=== PATIENT | female | born 1955 | race Caucasian/White ===

== ENCOUNTER → 2018-04-13 | Outpatient (CLI) | payer OTHER ==
[~2018-04-13] MED LIST: ALEN70 PO; CHOL10002 PO; CYAN1000 PO; MONT10T PO; Omeprazole20 M1; VITAMIN D32000 UNI1 PO
== END | disposition home or self-care (01) ==
LOC: LAB SHORT 08:30 → LAB 08:30
DX: L30.9 Dermatitis, unspecified (principal)
CPT/HCPCS: 87798

== ENCOUNTER 2018-08-17 12:39 | Emergency (ER) | payer OTHER ==
[~2018-08-17] VITALS: Ht 157.5 cm; Wt 68.0 kg
[2018-08-17 13:07] LABS: PCO2 Arterial 42.4 mmHg (35-45); PO2 Arterial 58.1 mmHg (80-100); pH Blood Arterial 7.45 (7.35-7.45)
[2018-08-17 13:17] LABS: BASOPHILS ABSOLUTE AUTO 0.07 K/mm3 (0.00-0.23); BASOPHILS PERCENT AUTO 1 % (0-2); EOSINOPHILS ABSOLUTE AUTO 0.37 K/mm3 (0.00-0.68); EOSINOPHILS PERCENT AUTO 3 % (0-6); Hematocrit 43.3 % (33.0-51.0); Hemoglobin 14.2 g/dL (11.5-16.0); IMMATURE GRAN ABSOLUTE AUTO 0.15 K/mm3 (0.00-0.10); IMMATURE GRAN PERCENT AUTO 1 % (0-1); LYMPHOCYTES ABSOLUTE AUTO 0.99 K/mm3 (0.84-5.20); LYMPHOCYTES PERCENT AUTO 8 % (21-46); MONOCYTES ABSOLUTE AUTO 0.61 K/mm3 (0.16-1.47); MONOCYTES PERCENT AUTO 5 % (4-13); Mean Corpuscular HGB 30.1 pg (26.0-34.0); Mean Corpuscular HGB Conc 32.8 g/dL (31.5-36.5); Mean Corpuscular Volume 92 fL (80-100); Mean Platelet Volume 10.2 fL (9.1-12.4); NEUTROPHILS ABSOLUTE AUTO 10.36 K/mm3 (1.96-9.15); NEUTROPHILS PERCENT AUTO 83 % (41-73); Platelet Count 233 K/mm3 (150-400); RDW Coefficient Variation 13.3 % (11.7-14.2); RDW Standard Deviation 44.9 fL (35.1-46.3); Red Blood Cell Count 4.71 M/mm3 (3.80-5.20); White Blood Cell Count 12.55 K/mm3 (4.00-11.30)
[2018-08-17 13:31] LABS: Alanine Aminotransfer (ALT/SGP 38 U/L (12-78); Albumin, Blood 3.2 g/dL (3.4-5.0); Albumin/Globulin Ratio 0.7 (0.8-1.8); Alk Phos 101 U/L (50-136); Anion Gap 7 mmol/L (6-16); Aspartate Aminotrans (AST/SGOT 28 U/L (12-37); Bilirubin, Total 0.6 mg/dL (0.1-1.0); Blood Urea Nitrogen 12 mg/dL (8-24); Bun/Creatinine Ratio 20.2 (12.0-20.0); CO2, Blood 28 mmol/L (21-32); Chloride, Blood 106 mmol/L (98-108); Creatinine, Blood 0.59 mg/dL (0.40-1.00); Globulin, Blood 4.4 g/dL (2.2-4.0); Glomerular Filtration Rate >60 (60-); Glucose, Blood 139 mg/dL (70-99); Potassium, Blood 4.3 mmol/L (3.5-5.5); Sodium, Blood 141 mmol/L (136-145); Total Protein, Blood 7.6 g/dL (6.4-8.2)
== END 2018-08-17 15:36 | disposition home or self-care (01) ==
LOC: ER 12:39
PROVIDERS: Physician Assistant
DX: J98.2 Interstitial emphysema (principal)
CPT/HCPCS: 36415; 36600; 71046; 80053; 82803; 85025; 94660; 96374; 96375; 99285-25; J2060; J2930

== ENCOUNTER 2018-10-14 11:36 | Inpatient (IN) | payer MEDICARE, BC ==
[~2018-10-14] VITALS: Ht 167.6 cm; Wt 64.0 kg
[2018-10-14 11:51] LABS: PCO2 Arterial 54.6 mmHg (35-45); PO2 Arterial 71.9 mmHg (80-100); pH Blood Arterial 7.38 (7.35-7.45)
[2018-10-14 11:56] LABS: BASOPHILS ABSOLUTE AUTO 0.08 K/mm3 (0.00-0.23); BASOPHILS PERCENT AUTO 1 % (0-2); EOSINOPHILS ABSOLUTE AUTO 0.87 K/mm3 (0.00-0.68); EOSINOPHILS PERCENT AUTO 6 % (0-6); Hematocrit 50.3 % (33.0-51.0); Hemoglobin 15.7 g/dL (11.5-16.0); IMMATURE GRAN ABSOLUTE AUTO 0.21 K/mm3 (0.00-0.10); IMMATURE GRAN PERCENT AUTO 1 % (0-1); LYMPHOCYTES ABSOLUTE AUTO 1.41 K/mm3 (0.84-5.20); LYMPHOCYTES PERCENT AUTO 10 % (21-46); MONOCYTES ABSOLUTE AUTO 0.91 K/mm3 (0.16-1.47); MONOCYTES PERCENT AUTO 6 % (4-13); Mean Corpuscular HGB 29.2 pg (26.0-34.0); Mean Corpuscular HGB Conc 31.2 g/dL (31.5-36.5); Mean Corpuscular Volume 94 fL (80-100); NEUTROPHILS ABSOLUTE AUTO 11.35 K/mm3 (1.96-9.15); NEUTROPHILS PERCENT AUTO 77 % (41-73); Platelet Count 320 K/mm3 (150-400); RDW Coefficient Variation 15.6 % (11.7-14.2); RDW Standard Deviation 52.5 fL (35.1-46.3); Red Blood Cell Count 5.37 M/mm3 (3.80-5.20); White Blood Cell Count 14.83 K/mm3 (4.00-11.30)
[2018-10-14 12:24] LABS: Alanine Aminotransfer (ALT/SGP 59 U/L (12-78); Albumin/Globulin Ratio 0.8 (0.8-1.8); Alk Phos 121 U/L (50-136); Anion Gap 9 mmol/L (6-16); Aspartate Aminotrans (AST/SGOT 31 U/L (12-37); Bilirubin, Total 0.6 mg/dL (0.1-1.0); Blood Urea Nitrogen 16 mg/dL (8-24); Bun/Creatinine Ratio 30.5 (12.0-20.0); CO2, Blood 28 mmol/L (21-32); Calcium, Blood 8.9 mg/dL (8.5-10.1); Chloride, Blood 100 mmol/L (98-108); Creatinine, Blood 0.52 mg/dL (0.40-1.00); Globulin, Blood 3.9 g/dL (2.2-4.0); Glomerular Filtration Rate >60 (60-); Glucose, Blood 285 mg/dL (70-99); Potassium, Blood 4.3 mmol/L (3.5-5.5); Sodium, Blood 137 mmol/L (136-145); Total Protein, Blood 6.9 g/dL (6.4-8.2)
--- NOTE | 2018-10-14 19:26 | NUR ---
Initial Visit: Palliative Care Consult for Goals of Care. Pt is A&O and denies pain at this time. Sandra, brother in law Yaneth, and sister in law Shirley present during visit. Pt denies anxiety at this time but reports anxiety increases significantly when SOB is severe and with exertion. Pt currently on BIPAP. Engaged in therapeutic conversation regarding goals of care. Pt is [employer] and lives at home with her Sandra. Sandra is the Pt's primary caregiver. Shirley and Yaneth live on the same farm and Pt's adult children live in [place]. All are very supportive of Pt's care needs. Sandra reports the Pt requires assistance with transfers, ambulation, dressing, and bathing. Pt reports that she has experienced a significant decline over the last week. Sandra tearful at times during visit and this RN offered emotional support. Listened as Sandra expressed fears and concerns. Pt reports no concerns and states "I am ready to live with Carlo". Pt and Sandra report the goal is for the Pt to pass away at home. Discussed hospice and educated Pt and family on hospice philosophy. Pt and Sandra state hospice is what we want. Sandra inquires if Pt would be able to have a BIPAP or CPAP while on hospice. Instructed Sandra this RN did not know the answer and defferred question to high risk case manager when they make a visit. Instructed Sandra and Pt on medications that hospice can provide to help manage Pt's breathing. Sandra and Pt V/U. Pt declines need for a visit from Physical Education Professor. Pt and family report no other concerns at this time. Spoke with Dr Olivera prior to visit and he is agreeable to discuss hospice. Spoke with Pt's PCU nurse and she is agreeable to plan. ADLs 4/6 KPS 40% PPS 40% Pt is severly dyspneic and oxygen dependent Plan: Will place hospice referral. Plan is for Pt to go home on hospice for same day admit upon hospital discharge. Will remain available
--- NOTE | 2018-10-14 19:26 | NUR ---
SHIFT SUMMARY PT ALERT AND ORIENTED. VS STABLE. HR HAS SUSTAINED 90'S ON CARDIZEM GTT AT 10ML/HR. PT RETURNED FROM ICU POST SCOPE. FIRST SET OF RECOVERY VITAL SIGNS STABLE. REPORT GIVEN AT BEDSIDE TO ANA GARCÍA. AT BEDSIDE.
--- NOTE | 2018-10-14 19:31 | NUR ---
SHIFT SUMMARY PT ALERT AND ORIENTED. VS STABLE. O2 SATS REMAIN ABOVE 90% ON BIPAP WITH FIO2 OF 70%. FAMILY AT BEDSIDE. DR. TAY IN TO SEE PT. PALLIATIVE CARE AND SUBJECT SCIENTIFIC RESEARCH CONSULTED. PALLIATIVE CARE NURSE IN TO SEE PT DISCUSSING HOSPICE. PT DENIES ANY PAIN. HR SINUS TACH WITH A RATE IN THE 100-110'S. NO OTHER CHANGES SINCE INITIAL ASSESSMENT. REPORT GIVEN TO ANDREY GARCÍA.
--- NOTE | 2018-10-14 19:45 | NUR ---
CARE ASSUMPTION PT A&O X4. PALLIATIVE CARE NURSE IN TO SPEAK W/ FAMILY. PT EXPRESSING READINESS TO GO HOME W/ HOSPICE. PT WEARING BIPAP, NOW BEING SWITCHED TO AIRVO @ 40L/MIN, FIO2 88% BY RT. PT TOLERATING WELL. SPO2 > 90%. MONITOR SHOWS ST, HR 100-120. WILL CONTINUE TO MONITOR AND PROVIDE CARE.
--- NOTE | 2018-10-15 07:15 | NUR ---
RECEIVED REPORT FROM RAQUEL BALDERAS, AND ASSUMED CARE OF PT.
--- NOTE | 2018-10-15 07:39 | NUR ---
SHIFT SUMMARY PT A&O X4, CALM AND COOPERATIVE. PT AND FAMILY AWAITING HOSPICE CONSULT. LUNG SOUNDS DIM T/O. PT EXPRESSING DISLIKE/REFUSAL OF BIPAP. SPO2 > 90% ON AIRVO @ 40 L/MIN, FIO2 INCREASED FROM 88% TO 92% THIS SHIFT. PT TOLERATING AIRVO @ 40 L/MIN T/O SHIFT. PT DESAT TO 73% W/ STAND AND PIVOT TO BSC THIS SHIFT, PT RECOVERY W/ DEEP BREATHING AND RESTING IN BED. MONITOR SHOWS ST, HR 100-120. REPORT GIVEN TO DAY SHIFT RN.
--- NOTE | 2018-10-15 16:45 | NUR ---
Pt visit this afternoon. Pt resting in bed upon arrival. Lots of family and friends present. Pt denies pain at this time. She reports not tolerating the BIPAP and she is now on AIRVO. Pt reported Dr Starr suggested when discharged home may need 2 concentrators tied together to help manage dyspnea. Pt reports that she is not tolerating activiy well and her saturations drop quickly. Pt reports no other concerns at this time. Spoke with Pt's nurse Felisha and she reports the plan is to hopefully wean Pt from airvo. No other concerns reported at this time. Pt may need a prescription from discharging doctor for high flow oxygen (oxymizer or non rebreather) and 2 concentrators. Plan is for Pt to go home on hospice.
--- NOTE | 2018-10-15 18:08 | NUR ---
NURSING SUMMARY ALERT AND ORIENTED X 4. SINUS TACHYCARDIA ON TELEMETRY, HR 110'S - 120, VSS. LUNGS CLEAR, DIMINISHED AT BASES, AIRVO AT 50L AND 70% FIO2, WORKING ON WEANING DOWN AND ONTO HIGHFLOW NC. DESATS WITH EXERTION. STANDBY ASSISTANCE TO BEDSIDE COMMODE DUE TO DYSPNEA WITH EXERTION. VOIDS PER BEDSIDE COMMODE. CALLS FOR ASSISTANCE APPROPRIATELY. TOLERATING A REGULAR DIET. SKIN INTACT. DENIES PAIN. LEFT HAND 24G SALINE LOCK. PALLIATIVE CARE CONSULTING FOR HOSPICE PLACEMENT. MANY VISITORS AT BEDSIDE TODAY.
--- NOTE | 2018-10-16 05:09 | NUR ---
SHIFT SUMMARY PT A&O X4. LUNG SOUNDS DIM T/O. SPO2 > 92% ON AIRVO @ 50 L/MIN, FIO2 69-73%. MONITOR SHOWS NSR, HR 80-100. VSS. PT C/O EARS FEELING PLUGGED. CALL TO [facility]ZCARRA FOR EAR DROPS PER PT REQUEST. PT STATES EAR DROPS TO HAVE BEEN EFFECTIVE. PT COMFORTABLE IN ROOM, READING OR SLEEPING T/O SHIFT. WILL CONTINUE TO MONITOR AND PROVIDE CARE UNTIL REPORT OFF TO DAY SHIFT RN.
--- NOTE | 2018-10-16 10:03 | NUR ---
AM NOTE PT ALERT AND ORIENTED. . TALKED WITH R/T. RESP. THERAPY IS GOING TO TRY AND WEAN PT TO 20L AND TRIAL HER ON A LUCINA FLOW. R/T STATED THAT PT CAN BE SUPPORTED ON 20L AT HOME WITH A DOUBLE CONCENTRATOR. SHERI HAS ALREADY BEEN CONTACTED. PT CURRENTLY ON 35L VIA AIRVO. SPO2 94%. PT EXPRESSED A DESIRE TO HAVE HER HAIR WASHED. NOT WITHTHE SHOWER CAPS. HER DAUGHTER IS BRINGING NO RINSE SHAMPOO. IF PT DOESN'T LIKE THAT THIS NURSE HAS OFFERED TO WASH HER HAIR IN BED. PT DECLINED FOR NOW. VSS. EATING WELL. SPOUCE AT BEDSIDE. HE IS TEARFUL AT TIMES. THEY HAVE BEEN TOGETHER SINCE 6TH GRADE. YUDY WOULD CLEAN OUT HER SHEEP PENS AT [facility] FOR HER. PLAN TO GO HOME ON HOSPICE TOMORROW. CONTINUE POT.
--- NOTE | 2018-10-17 04:39 | NUR ---
SHIFT SUMMARY PT A&O X4, CALM AND COOPERATIVE. LUNG SOUNDS DIM T/O. SPO2 > 90% ON 15L HIGH FLOW CANULA W/ DESAT TO 70% W/ GETTING UP TO BSC. NRB USED FOR RECOVERY. MONITOR SHOWS NSR/ST, HR 90-120. VSS. PT ABLE TO SLEEP A FEW HOURS THIS SHIFT. PT AWAITING HOSPICE REFFERAL CONSULT. WILL CONTINUE TO MONITOR AND PROVIDE CARE UNTIL REPORT OFF TO DAY SHIFT RN.
--- NOTE | 2018-10-17 13:40 | NUR ---
Spiritual care visit conducted. Patient was lying in bed and alert when I entered the room. Patient's son was bedside. 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 Patient stated that she is going home on hospice. Patient's deepest concern is for her family. Patient seemed gracious and kind and responded well to pastoral education counselor, a calming presence and prayer. Patient expressed gratitude for a visit from spiritual care.
--- NOTE | 2018-10-18 06:27 | NUR ---
SHIFT SUMMARY PT A&O X4, VSS. LUNG SOUNDS DIM T/O. SPO2 > 90% ON 15L HIGH FLOW CANNULA. PT USING NRB WHEN GETTING UP TO USE BEDSIDE COMMODE W/ DESAT TO 80% FOLLOWED BY RECOVERY WHEN BACK IN BED. PT EXPRESSING HAPPINESS TO BE GOING HOME W/ HOSPICE TODAY. PT IN BED READING, STATES FAMILY WILL BE COMING IN THIS MORNING. WILL CONTINUE TO MONITOR AND PROVIDE CARE UNTIL REPORT OFF TO DAY SHIFT RN.
[2018-10-18] MEDS ORDERED: ACET120S PR (09:07)
[2018-10-18] MEDS ORDERED: ASPI81CH PO (09:08)
[2018-10-18] MEDS ORDERED: BISA10S PR (09:09)
[2018-10-18] MEDS ORDERED: CARB10OTL BOTHEARS (09:21)
[2018-10-18] MEDS ORDERED: ALBU3IS INH (09:23)
[2018-10-18] MEDS ORDERED: LEVO750 PO (09:24)
[2018-10-18] MEDS ORDERED: DULERA 200 MCG/13 GM INH (09:25)
[2018-10-18] MEDS ORDERED: PRED10 PO (09:27)
[2018-10-18] MEDS ORDERED: ONDA4ODT MM (09:27)
[2018-10-18] MEDS ORDERED: DOCU100 PO (09:28)
--- NOTE | 2018-10-18 13:49 | NUR ---
PT DC'D HOME IN STABLE CONDITION. BEING DISCHARGED TO HOSPICE. ALERT. DAUGHTER PRESENT. LEAVING ON 20L O2 VIA HIGH FLOW NC AND NONREBREATHER. HOSPICE ARRANGED BY [employer] SUPERVISOR. PT TO FOLLOW UP WITH PRIMARY CARE NEEDED. MEDS CALLED TO [facility] IN [place] PER PT REQ. DISCUSSED DISCHARGE INSTRUCTIONS WITH PT AND DAUGHTER, ANSWERED ALL QUESTIONS. BOTH DENY ANY OTHER QUESTIONS OR NEEDS AND THIS TIME. PT LEFT VIA GURNEY TRANSPORT
== END 2018-10-18 14:01 | disposition hospice, home (50) | DRG 196 ==
LOC: ER 11:36 → PCU 14:37
PROVIDERS: Emergency Medicine; ADMIT Internal Medicine
PROC: 5A09357 Assistance with Respiratory Ventilation, Less than 24 Consecutive Hours, Continuous Positive Airway Pressure (ICD-10-PCS; principal; 2018-10-14)
DX: J84.9 Interstitial pulmonary disease, unspecified (principal); J96.22 Acute and chronic respiratory failure with hypercapnia; J96.21 Acute and chronic respiratory failure with hypoxia; J84.10 Pulmonary fibrosis, unspecified; Z99.81 Dependence on supplemental oxygen; G43.909 Migraine, unspecified, not intractable, without status migrainosus; D72.829 Elevated white blood cell count, unspecified; Z79.82 Long term (current) use of aspirin
CPT/HCPCS: 36430; 36600; 71045; 80053; 82803; 85025; 93005; 93010; 94640; 94762; 96365; 96366; 99285-25; J1650; J1956; J2930; J3475